=== PATIENT | female | born 1950 | race Caucasian/White ===

== ENCOUNTER 2018-05-16 07:29 | Day surgery (SDC) | payer MEDICARE, BC ==
[~2018-05-16] VITALS: Ht 154.9 cm; Wt 63.5 kg
--- NOTE | ~2018-05-16 | OP ---
PATIENT NAME: MANDI FARIAS MEDICAL RECORD: [id number] :48 [facility] ADMISSION DATE: SURGEON: LUIZ LO MD DATE OF OPERATION: 05/16/2018 PREOPERATIVE DIAGNOSIS: Displaced nasal fracture. POSTOPERATIVE DIAGNOSIS: Displaced nasal fracture. PROCEDURE: Closed reduction nasal fracture. SURGEON: Luiz Lo MD ANESTHESIA: General TIVA. PACKING: None. [place] splint externally. COMPLICATIONS: None. DISPOSITION: Recovery stable. DESCRIPTION OF PROCEDURE: She is brought to the operating room and placed in supine position, sedated by anesthesia. She had already been decongested with Afrin preoperatively. The nose was examined. She has some right septal deviation, but nothing that appeared acute. No hematoma. It was flat and intact. She had a displaced nasal fracture to the left with a C-shaped nasal deformity on palpation. To palpate, she had a very old rhinoplasty with some palpable bony changes there, but the right nasal bone was depressed. The nasal dorsum was deviated to the left, [place] elevator on the right side, digital pressure on the left, I was able to reduce the fractures and then move the nose back into position. Once that was done, the nose was straight. The osteotomies were still well palpable, but the nose was straight and the skin was cleaned. Steri-Strips and Mastisol were applied and the [place] splint was cut to size and placed. Nose was again examined, almost no bleeding. She was awakened and transported to recovery in good condition. No complications. TRANSINT:[id number] Voice Confirmation ID: [id number] DOCUMENT ID: [id number] LUIZ LO MD CC: [id number] DICTATION DATE: 05/16/18 1315 GRAIN INSPECTOR: 05/16/18 1407 REG [facility] [address] [place] [address]
--- NOTE | ~2018-05-16 | HP ---
PATIENT: MANDI FARIAS MEDICAL RECORD: [id number] ACCOUNT: [id number] [facility]ATION:[facility] : 48 ADMISSION DATE: 05/16/18 PCP: HISTORY AND PHYSICAL EXAMINATION PREOPERATIVE HISTORY AND PHYSICAL HISTORY OF PRESENT ILLNESS: Ms. Farias is a 68-year-old female. She fell face first into the steps and suffered a displaced nasal fracture. She is being admitted for closed reduction nasal fracture. PAST MEDICAL HISTORY: Includes hypertension, reflux and hypothyroidism. PAST SURGICAL HISTORY: Includes endoscopy. CURRENT MEDICATIONS: Atorvastatin, metoprolol, levothyroxine, bupropion and a blood pressure medication. ALLERGIES: No known drug allergies. PHYSICAL EXAMINATION: GENERAL: She is healthy-appearing. HEENT: She does have periorbital ecchymosis worse left than right, displaced C-shaped deformity to the nose with the nose deflected to the left side. Her ear canals and TMs are normal. Intranasal exam, some septal deviation, does not appear to be an acute septal fracture. ORAL CAVITY AND OROPHARYNX: No trismus. Tongue protrudes in the midline. NECK: Normal. NEUROLOGIC: Cranial nerves are normal including no numbness on face. CHEST: Clear. CARDIOVASCULAR: Regular rate and rhythm, no murmur. EXTREMITIES: Normal. IMPRESSION: Displaced nasal fracture. PLAN: Closed reduction nasal fracture. However, I am going to get a CT because her periorbital ecchymosis is extensive, I want to make sure there is nothing else going on and that needs to be addressed. TRANSINT:[id number] Voice Confirmation ID: [id number] DOCUMENT ID: [id number] JEAN SHIRLEY MD CC: [id number] DICTATION DATE: 05/12/18 1559 MANAGER MECHANICAL MAINTENANCE: 05/12/[address] [facility] [address] [place] [address]
[2018-05-16 07:56] LABS: HEMOGLOBIN 13.6 g/dL (12-16); MCH 29.8 pg (26.0-34.0); MCHC 33.2 g/dL (31.0-37.0); MCV 89.9 fL (80.0-100.0); MEAN PLATELET VOLUME 8.2 fL (7.4-10.4); RBC 4.56 10x6/uL (4.00-5.40); RDW 12.9 % (11.5-14.5); WBC 7.1 10x3/uL (4.8-10.8)
[2018-05-16 08:07] LABS: ANION GAP 14.2 mmol/L (8-16); CALCIUM 9.2 mg/dL (8.5-10.1); CARBON DIOXIDE 30.1 mmol/L (21.0-32.0); CREATININE - SERUM 1.2 mg/dL (0.6-1.3); POTASSIUM - SERUM 4.3 mmol/L (3.5-5.1)
[2018-05-16] MEDS ORDERED: SYNTHROID88 MCG PO (08:57)
[2018-05-16] MEDS ORDERED: BUPROPION XL300 MG PO (08:57)
[2018-05-16] MEDS ORDERED: MAXZIDE 75/501 TAB PO (08:59)
[2018-05-16] MEDS ORDERED: DESERYL50 M2 PO (09:00)
[2018-05-16] MEDS ORDERED: TOPROL XL50 MG PO (09:01)
[2018-05-16] MEDS ORDERED: VITAMIN D2000 UNIT PO (09:01)
[2018-05-16] MEDS ORDERED: CO Q-10100 MG PO (09:03)
[2018-05-16] MEDS ORDERED: LIPITOR10 MG PO (09:03)
[2018-05-16 09:17] VITALS: BP 121/61; Ht 154.9 cm; Wt 63.5 kg
== END 2018-05-16 15:03 | disposition home or self-care (01) ==
LOC: D.OPS 07:29 → D.PAN 09:30 → D.OPS 09:50 → D.PAN 09:50 → D.OPS 15:03
PROVIDERS: Anesthesiology
DX: S02.2XXA Fracture of nasal bones, initial encounter for closed fracture (principal); W10.8XXA Fall (on) (from) other stairs and steps, initial encounter; I10 Essential (primary) hypertension; K21.9 Gastro-esophageal reflux disease without esophagitis; E03.9 Hypothyroidism, unspecified; Z79.899 Other long term (current) drug therapy